=== PATIENT | male | born 1960 | race Caucasian/White ===

== ENCOUNTER → 2016-05-31 | Outpatient (CLI) | payer OTHER ==
--- NOTE | 2016-05-31 16:50 | DX ---
Bilateral feet, 3 views each side.. History: PAIN MEDIAL FEET AT TIBIALIS ANTERIOR TENDON INSERTION MEDIAL CUNEIFORM. R/O ABNORMALITY Comparison examination:none available Findings: Left foot: Early degenerative arthropathy at the first MTP joint. Joint spaces are otherwise preserve d. No fracture or malalignment. Bipartite fibular sesamoid incidentally identified. Small enthesis at the Achilles attachment to the calcaneus. Right foot: Degenerative/posttraumatic joint space narrowing of the first MTP joint is associated wit h bony deformity along the lateral margin of the proximal phalanx suggestive of hypertrophic bony res ponse to previous trauma. Bipartite fibular sesamoid noted. Joint spaces are otherwise intact. Modera te sized spur at the Achilles insertion on the calcaneus. Impression: 1. 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 2. Bilateral calcaneal spurs.
== END ==
LOC: BMCIMAGING 13:50
PROVIDERS: ATTEND Podiatrist Foot & Ankle Surgery
DX: M79.671 Pain in right foot (principal); M79.672 Pain in left foot; M12.9 Arthropathy, unspecified; M77.31 Calcaneal spur, right foot; M77.32 Calcaneal spur, left foot

== ENCOUNTER → 2016-07-19 | Outpatient (CLI) | payer OTHER | LOC: FIMAGING 12:45 | PROVIDERS: ATTEND Podiatrist Foot & Ankle Surgery | DX: M76.821 Posterior tibial tendinitis, right leg (principal); M19.071 Primary osteoarthritis, right ankle and foot; M77.51 Other enthesopathy of right foot and ankle; M67.471 Ganglion, right ankle and foot; S93.691A Other sprain of right foot, initial encounter; M76.61 Achilles tendinitis, right leg ==